=== PATIENT | female | born 1990 | race Two or more races ===

== ENCOUNTER 2021-04-04 17:25 | Emergency (ER) | payer SELFPAY ==
[~2021-04-04] VITALS: Ht 154.9 cm; Wt 60.3 kg
--- NOTE | 2021-04-04 18:04 | NUR ---
Pt signed out AMA. Pt will follow up at [facility] directly.
== END 2021-04-04 18:05 | disposition left against medical advice (07) ==
LOC: ER 17:30
DX: O9A.212 Injury, poisoning and certain other consequences of external causes complicating pregnancy, second trimester (principal); R10.30 Lower abdominal pain, unspecified; M54.9 Dorsalgia, unspecified; S29.9XXA Unspecified injury of thorax, initial encounter; Z3A.00 Weeks of gestation of pregnancy not specified; V43.52XA Car driver injured in collision with other type car in traffic accident, initial encounter; Y92.414 Local residential or business street as the place of occurrence of the external cause
CPT/HCPCS: 36415; 86900; 86901; A4663